=== PATIENT | male | born 1985 ===

== ENCOUNTER 2018-08-03 23:46 | Emergency (ER) | payer SELFPAY ==
[2018-08-04] VITALS: BMI 31.6
[2018-08-04 00:02] VITALS: TEMP 98.2
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
[2018-08-04] MEDS ORDERED: Lidocaine 1% Inj (20ml) INFIL STA (00:10)
[2018-08-04] MEDS ORDERED: TDAP Vaccine 0.5 mL Syr IM ONE (00:10)
[2018-08-04 01:17] VITALS: RESP 18; O2SAT 100
[2018-08-04 01:25] VITALS: BP 132/70; PULSE 80
== END 2018-08-04 01:24 | disposition home or self-care (01) ==
LOC: ED 23:46
DX: S01.311A Laceration without foreign body of right ear, initial encounter (principal); X58.XXXA Exposure to other specified factors, initial encounter; Y92.838 Other recreation area as the place of occurrence of the external cause; Z23 Encounter for immunization